=== PATIENT | male | born 1935 | race Two or more races ===

== ENCOUNTER 2021-10-22 10:15 | Outpatient (CLI) | payer MEDICARE, BC | END 2021-10-22 23:59 | disposition home or self-care (01) | LOC: WOU 10:15 | PROVIDERS: ATTEND Specialist | DX: I70.233 Atherosclerosis of native arteries of right leg with ulceration of ankle (principal); L97.312 Non-pressure chronic ulcer of right ankle with fat layer exposed; I87.2 Venous insufficiency (chronic) (peripheral); Z79.01 Long term (current) use of anticoagulants; Z95.0 Presence of cardiac pacemaker; I10 Essential (primary) hypertension; Z87.891 Personal history of nicotine dependence | CPT/HCPCS: 87077; 87070; 87186 ×2; G0463; A6209 ==

== ENCOUNTER 2021-10-29 10:36 | Outpatient (CLI) | payer MEDICARE, BC | END 2021-10-29 23:59 | disposition home or self-care (01) | LOC: WOU 10:36 | PROVIDERS: ATTEND Specialist | DX: I70.233 Atherosclerosis of native arteries of right leg with ulceration of ankle (principal); L97.312 Non-pressure chronic ulcer of right ankle with fat layer exposed; I87.2 Venous insufficiency (chronic) (peripheral); L97.812 Non-pressure chronic ulcer of other part of right lower leg with fat layer exposed; I50.9 Heart failure, unspecified; I48.91 Unspecified atrial fibrillation; Z79.01 Long term (current) use of anticoagulants; Z87.891 Personal history of nicotine dependence; Z95.0 Presence of cardiac pacemaker | CPT/HCPCS: G0463; A6209 ==

== ENCOUNTER 2021-11-05 10:30 | Outpatient (CLI) | payer MEDICARE, BC ==
[2021-11-05] MEDS ORDERED: UREA 10% -AHA 4% CREAM 57 GM TUBE ONE (11:36)
== END 2021-11-05 23:59 | disposition home or self-care (01) ==
LOC: WOU 10:30
PROVIDERS: ATTEND Specialist
DX: I70.233 Atherosclerosis of native arteries of right leg with ulceration of ankle (principal); L97.312 Non-pressure chronic ulcer of right ankle with fat layer exposed; I87.2 Venous insufficiency (chronic) (peripheral); L97.512 Non-pressure chronic ulcer of other part of right foot with fat layer exposed; Z95.0 Presence of cardiac pacemaker; I48.91 Unspecified atrial fibrillation; Z79.01 Long term (current) use of anticoagulants; I50.9 Heart failure, unspecified
CPT/HCPCS: G0463; A6209

== ENCOUNTER 2021-11-12 08:15 | Outpatient (CLI) | payer MEDICARE, BC ==
[2021-11-12] MEDS ORDERED: LIDOCAINE SOLN 4% 50 ML BOTTLE ONE (08:24)
== END 2021-11-12 23:59 | disposition home or self-care (01) ==
LOC: WOU 08:15
PROVIDERS: ATTEND Specialist
DX: I70.233 Atherosclerosis of native arteries of right leg with ulceration of ankle (principal); L97.312 Non-pressure chronic ulcer of right ankle with fat layer exposed; I87.2 Venous insufficiency (chronic) (peripheral); L97.812 Non-pressure chronic ulcer of other part of right lower leg with fat layer exposed; Z95.0 Presence of cardiac pacemaker; I50.9 Heart failure, unspecified; I48.91 Unspecified atrial fibrillation; Z79.01 Long term (current) use of anticoagulants
CPT/HCPCS: G0463

== ENCOUNTER 2021-11-26 13:15 | Outpatient (CLI) | payer MEDICARE, BC ==
[2021-11-26] MEDS ORDERED: LIDOCAINE SOLN 4% 50 ML BOTTLE ONE (13:35)
== END 2021-11-26 23:59 | disposition home or self-care (01) ==
LOC: WOU 13:15
PROVIDERS: ATTEND Podiatrist Foot & Ankle Surgery
DX: L89.513 Pressure ulcer of right ankle, stage 3 (principal); I87.2 Venous insufficiency (chronic) (peripheral); Z95.0 Presence of cardiac pacemaker; I48.91 Unspecified atrial fibrillation; Z79.01 Long term (current) use of anticoagulants; I50.9 Heart failure, unspecified
CPT/HCPCS: 11042; 87070-TC; 87075-TC; 87186-TC

== ENCOUNTER 2021-12-03 09:15 | Outpatient (CLI) | payer MEDICARE, BC | END 2021-12-03 23:59 | disposition home or self-care (01) | LOC: WOU 09:15 | PROVIDERS: ATTEND Specialist | DX: L89.513 Pressure ulcer of right ankle, stage 3 (principal); I87.2 Venous insufficiency (chronic) (peripheral); Z95.0 Presence of cardiac pacemaker; Z79.01 Long term (current) use of anticoagulants | CPT/HCPCS: G0463; A6209 ==

== ENCOUNTER 2021-12-10 09:45 | Outpatient (CLI) | payer MEDICARE, BC ==
[2021-12-10] MEDS ORDERED: LIDOCAINE SOLN 4% 50 ML BOTTLE ONE (10:03)
[2021-12-10] MEDS ORDERED: Z GUARD REMEDY 4 OZ OINT TP ONE (10:48)
== END 2021-12-10 23:59 | disposition home or self-care (01) ==
LOC: WOU 09:45
PROVIDERS: ATTEND Specialist
DX: L89.513 Pressure ulcer of right ankle, stage 3 (principal); L89.521 Pressure ulcer of left ankle, stage 1; I87.2 Venous insufficiency (chronic) (peripheral); I50.9 Heart failure, unspecified; I48.91 Unspecified atrial fibrillation; Z79.01 Long term (current) use of anticoagulants; Z95.0 Presence of cardiac pacemaker; Z87.891 Personal history of nicotine dependence
CPT/HCPCS: 15271; Q4158 ×2; A6209

== ENCOUNTER 2021-12-17 08:43 | Outpatient (CLI) | payer MEDICARE, BC | END 2021-12-17 23:59 | disposition home or self-care (01) | LOC: WOU 08:43 | PROVIDERS: ATTEND Specialist | DX: L89.513 Pressure ulcer of right ankle, stage 3 (principal); L89.106 Pressure-induced deep tissue damage of unspecified part of back; I87.2 Venous insufficiency (chronic) (peripheral); Z79.01 Long term (current) use of anticoagulants | CPT/HCPCS: 15271; Q4158 ×2 ==

== ENCOUNTER 2021-12-24 08:43 | Outpatient (CLI) | payer MEDICARE, BC ==
[2021-12-24] MEDS ORDERED: LIDOCAINE SOLN 4% 50 ML BOTTLE ONE (09:06)
== END 2021-12-24 23:59 | disposition home health service (06) ==
LOC: WOU 08:43
PROVIDERS: ATTEND Specialist
DX: L89.513 Pressure ulcer of right ankle, stage 3 (principal); L89.522 Pressure ulcer of left ankle, stage 2; L89.892 Pressure ulcer of other site, stage 2; L89.106 Pressure-induced deep tissue damage of unspecified part of back; I48.91 Unspecified atrial fibrillation; Z79.01 Long term (current) use of anticoagulants; I50.9 Heart failure, unspecified; Z95.0 Presence of cardiac pacemaker
CPT/HCPCS: 15271; Q4158 ×2

== ENCOUNTER 2021-12-31 08:40 | Outpatient (CLI) | payer MEDICARE, BC | END 2021-12-31 23:59 | disposition home health service (06) | LOC: WOU 08:40 | PROVIDERS: ATTEND Specialist | DX: L89.513 Pressure ulcer of right ankle, stage 3 (principal); I87.2 Venous insufficiency (chronic) (peripheral); Z95.0 Presence of cardiac pacemaker; I48.91 Unspecified atrial fibrillation; Z79.01 Long term (current) use of anticoagulants; I50.9 Heart failure, unspecified | CPT/HCPCS: 15271; Q4158 ×2 ==

== ENCOUNTER 2022-01-06 09:48 | Outpatient (CLI) | payer MEDICARE, BC | END 2022-01-06 23:59 | disposition home health service (06) | LOC: WOU 09:48 | PROVIDERS: ATTEND Podiatrist Foot & Ankle Surgery | DX: B35.1 Tinea unguium (principal); I87.2 Venous insufficiency (chronic) (peripheral); L60.2 Onychogryphosis; L89.513 Pressure ulcer of right ankle, stage 3; Z95.0 Presence of cardiac pacemaker; Z79.01 Long term (current) use of anticoagulants | CPT/HCPCS: G0463 ==

== ENCOUNTER 2022-01-07 08:52 | Outpatient (CLI) | payer MEDICARE, BC | END 2022-01-07 23:59 | disposition home health service (06) | LOC: WOU 08:52 | PROVIDERS: ATTEND Specialist | DX: L89.513 Pressure ulcer of right ankle, stage 3 (principal); I87.2 Venous insufficiency (chronic) (peripheral); Z95.0 Presence of cardiac pacemaker; I48.91 Unspecified atrial fibrillation; Z79.01 Long term (current) use of anticoagulants | CPT/HCPCS: 15271; Q4158 ==

== ENCOUNTER 2022-01-14 08:43 | Outpatient (CLI) | payer MEDICARE, BC | END 2022-01-14 23:59 | disposition home health service (06) | LOC: WOU 08:43 | PROVIDERS: ATTEND Specialist | DX: L89.513 Pressure ulcer of right ankle, stage 3 (principal); I87.2 Venous insufficiency (chronic) (peripheral); Z95.0 Presence of cardiac pacemaker | CPT/HCPCS: 15275; Q4158 ==

== ENCOUNTER 2022-01-21 08:28 | Outpatient (CLI) | payer MEDICARE, BC | END 2022-01-21 23:59 | disposition home health service (06) | LOC: WOU 08:28 | PROVIDERS: ATTEND Specialist | DX: L89.513 Pressure ulcer of right ankle, stage 3 (principal); I87.2 Venous insufficiency (chronic) (peripheral); I48.91 Unspecified atrial fibrillation; Z79.01 Long term (current) use of anticoagulants; Z95.1 Presence of aortocoronary bypass graft; Z95.0 Presence of cardiac pacemaker | CPT/HCPCS: G0463 ==

== ENCOUNTER 2022-01-28 08:46 | Outpatient (CLI) | payer MEDICARE, BC | END 2022-01-28 23:59 | disposition home health service (06) | LOC: WOU 08:46 | PROVIDERS: ATTEND Specialist | DX: L89.513 Pressure ulcer of right ankle, stage 3 (principal); L89.312 Pressure ulcer of right buttock, stage 2; L89.151 Pressure ulcer of sacral region, stage 1; I87.2 Venous insufficiency (chronic) (peripheral); Z95.0 Presence of cardiac pacemaker; Z79.01 Long term (current) use of anticoagulants | CPT/HCPCS: 11042 ==

== ENCOUNTER 2022-02-11 08:47 | Outpatient (CLI) | payer MEDICARE, BC | END 2022-02-11 23:59 | disposition home health service (06) | LOC: WOU 08:47 | PROVIDERS: ATTEND Specialist | DX: L89.513 Pressure ulcer of right ankle, stage 3 (principal); I87.2 Venous insufficiency (chronic) (peripheral); Z95.0 Presence of cardiac pacemaker; Z79.01 Long term (current) use of anticoagulants | CPT/HCPCS: 11042; A6209 ==

== ENCOUNTER 2022-03-18 08:50 | Outpatient (CLI) | payer BC, MEDICARE ==
[2022-03-18] MEDS ORDERED: COLLAGENASE 5 GM TUBE UD TP ONE (09:31)
== END 2022-03-18 23:59 | disposition home health service (06) ==
LOC: WOU 08:50
PROVIDERS: ATTEND Specialist
DX: L89.513 Pressure ulcer of right ankle, stage 3 (principal); L89.612 Pressure ulcer of right heel, stage 2; L89.892 Pressure ulcer of other site, stage 2; I87.2 Venous insufficiency (chronic) (peripheral); Z95.0 Presence of cardiac pacemaker; Z79.01 Long term (current) use of anticoagulants
CPT/HCPCS: 11042

== ENCOUNTER 2022-03-25 08:57 | Outpatient (CLI) | payer MEDICARE | END 2022-03-25 23:59 | disposition home or self-care (01) | LOC: WOU 08:57 | PROVIDERS: ATTEND Specialist | DX: L89.513 Pressure ulcer of right ankle, stage 3 (principal); L89.512 Pressure ulcer of right ankle, stage 2; L89.612 Pressure ulcer of right heel, stage 2; L89.156 Pressure-induced deep tissue damage of sacral region; S81.811A Laceration without foreign body, right lower leg, initial encounter; X58.XXXA Exposure to other specified factors, initial encounter; Y92.89 Other specified places as the place of occurrence of the external cause; R23.8 Other skin changes; L57.0 Actinic keratosis; I87.2 Venous insufficiency (chronic) (peripheral); Z95.0 Presence of cardiac pacemaker; Z79.01 Long term (current) use of anticoagulants | CPT/HCPCS: G0463; A6209 ×2 ==

== ENCOUNTER 2022-04-01 09:09 | Outpatient (CLI) | payer MEDICARE ==
[2022-04-01] MEDS ORDERED: Z GUARD REMEDY 4 OZ OINT TP ONE (09:26)
== END 2022-04-01 23:59 | disposition home or self-care (01) ==
LOC: WOU 09:09
PROVIDERS: ATTEND Specialist
DX: L89.513 Pressure ulcer of right ankle, stage 3 (principal); L89.512 Pressure ulcer of right ankle, stage 2; L89.612 Pressure ulcer of right heel, stage 2; L89.156 Pressure-induced deep tissue damage of sacral region; S81.811A Laceration without foreign body, right lower leg, initial encounter; X58.XXXA Exposure to other specified factors, initial encounter; Y92.89 Other specified places as the place of occurrence of the external cause; R23.8 Other skin changes; L57.0 Actinic keratosis; I87.2 Venous insufficiency (chronic) (peripheral); Z95.0 Presence of cardiac pacemaker; Z79.01 Long term (current) use of anticoagulants
CPT/HCPCS: G0463; A6209

== ENCOUNTER → 2022-04-08 | Outpatient (CLI) | payer MEDICARE ==
[~2022-04-08] MED LIST: SILVER SULFADIAZINE CREAM 25 GM TUBE ONE; Z GUARD REMEDY 4 OZ OINT TP ONE
== END | disposition home or self-care (01) ==
LOC: WOU 08:40
PROVIDERS: ATTEND Specialist
DX: L89.513 Pressure ulcer of right ankle, stage 3 (principal); L89.512 Pressure ulcer of right ankle, stage 2; L89.612 Pressure ulcer of right heel, stage 2; L89.156 Pressure-induced deep tissue damage of sacral region; I87.2 Venous insufficiency (chronic) (peripheral); Z95.0 Presence of cardiac pacemaker; S81.812D Laceration without foreign body, left lower leg, subsequent encounter; S81.811D Laceration without foreign body, right lower leg, subsequent encounter; X58.XXXD Exposure to other specified factors, subsequent encounter; R23.8 Other skin changes; Z79.01 Long term (current) use of anticoagulants
CPT/HCPCS: 11042; A6209

== ENCOUNTER 2022-04-15 08:45 | Outpatient (CLI) | payer MEDICARE | END 2022-04-15 23:59 | disposition home health service (06) | LOC: WOU 08:45 | PROVIDERS: ATTEND Specialist | DX: L89.513 Pressure ulcer of right ankle, stage 3 (principal); L89.512 Pressure ulcer of right ankle, stage 2; L89.612 Pressure ulcer of right heel, stage 2; I87.2 Venous insufficiency (chronic) (peripheral); R23.8 Other skin changes; Z95.0 Presence of cardiac pacemaker; I48.91 Unspecified atrial fibrillation; Z79.01 Long term (current) use of anticoagulants; Z87.891 Personal history of nicotine dependence | CPT/HCPCS: 11042; A6209 ==

== ENCOUNTER 2022-04-22 09:08 | Outpatient (CLI) | payer MEDICARE | END 2022-04-22 23:59 | disposition home health service (06) | LOC: WOU 09:08 | PROVIDERS: ATTEND Specialist | DX: L89.513 Pressure ulcer of right ankle, stage 3 (principal); L89.512 Pressure ulcer of right ankle, stage 2; L89.612 Pressure ulcer of right heel, stage 2; M79.81 Nontraumatic hematoma of soft tissue; I87.2 Venous insufficiency (chronic) (peripheral); Z79.01 Long term (current) use of anticoagulants | CPT/HCPCS: 10140; 11042; A6209 ==

== ENCOUNTER 2022-04-22 10:02 | Emergency (ER) | payer MEDICARE ==
[~2022-04-22] VITALS: Ht 175.3 cm; Wt 63.5 kg
--- NOTE | 2022-04-22 10:10 | NUR ---
bib caregiver from wound clinic for noted low o2 sats and tachycardia. On 6lpm via face mask. IV access initiated and blood drawned and sent to lab. Kept comfortable, will continue to monitor accordingly.
--- NOTE | 2022-04-22 10:20 | NUR ---
INCERTED ANGO CATHETER G 20 ON RT AC BLOOD DROW AND SENT TO LAB BLOOD CUTURE X 2 SENT
--- NOTE | 2022-04-22 10:35 | NUR ---
TEMP 95.2F RECTALE WORM BLANKET APPLED
--- NOTE | 2022-04-22 10:37 | NUR ---
covid swab collected and sent to lab.
[2022-04-22] MEDS ORDERED: AMIODARONE 450 MG in IV D5W 250 ML IV ONE (11:00)
[2022-04-22] MEDS ORDERED: APIXABAN 5 MG TABLET PO SCH (11:00)
[2022-04-22] MEDS ORDERED: hydrALAZINE HCL IV 20 MG VIAL IV PRN (11:00)
[2022-04-22] MEDS ORDERED: ONDANSETRON HCL/PF 4 MG/2 ML VIAL IVP PRN (11:00)
[2022-04-22] MEDS ORDERED: MAG HYDROX/AL HYDROX/SIMETH 30 ML UDC PO PRN (11:00)
[2022-04-22] MEDS ORDERED: MAGNESIUM HYDROXIDE 30 ML UDC PO PRN (11:00)
[2022-04-22] MEDS ORDERED: MORPHINE SULFATE INJ 2 MG/ML DISP.SYRIN IV PRN (11:00)
[2022-04-22] MEDS ORDERED: Z GUARD REMEDY 4 OZ OINT TP PRN (11:00)
[2022-04-22] MEDS ORDERED: AMIODARONE 150 MG in IV D5W 100 ML IV ONE (11:00)
[2022-04-22] MEDS ORDERED: ACETAMINOPHEN 325 MG TABLET PO PRN (11:00)
--- NOTE | 2022-04-22 11:02 | NUR ---
PT HAD WOUND WITH DRESSING on rt heel and lt leg pt came from wound care center
[2022-04-22 11:03] LABS: BASOPHILS % (AUTO) 0.1 % (0.0-2.0); EOSINOPHILS % (AUTO) 0.3 % (0.0-6.0); HEMATOCRIT 45 % (39-51); HEMOGLOBIN 14.1 g/dL (13.5-17.5); LYMPHOCYTES # (AUTO) 0.6 K/uL (0.8-4.8); LYMPHOCYTES % (AUTO) 5.7 % (20.0-44.0); MEAN CORPUSCULAR HGB CONC 31 g/dl (31.0-36.0); MEAN CORPUSCULAR VOLUME 99 fL (80-96); MONOCYTES # (AUTO) 0.9 K/uL (0.1-1.30); MONOCYTES % (AUTO) 8.2 % (2.0-12.0); NEUTROPHILS # (AUTO) 9.6 K/uL (1.8-8.9); NEUTROPHILS % (AUTO) 85.7 % (43.0-81.0); PLATELET COUNT (AUTO) 192 K/uL (150-450); RED BLOOD CELL COUNT(AUTO) 4.57 MIL/uL (4.5-6.0); WHITE BLOOD COUNT (AUTO) 11.2 K/uL (4.3-11.0)
--- NOTE | 2022-04-22 11:10 | NUR ---
DR. FAY SPOOKING WITH FAMILY son in low about pt critical ill and HR 140B/MIN WAS IN critale condition unstable to AMA O2 SAT ON o2 2l NC 86-88% PT REFUSED TO be in hospitale inpt pt
--- NOTE | 2022-04-22 11:15 | NUR ---
SON IN LOW( ED FEIGESTECT )
--- NOTE | 2022-04-22 11:35 | NUR ---
PT had sking tair when home health care worker try to got out of garny
[2022-04-22 11:36] LABS: ALANINE AMINOTRANSFERASE 27 U/L (12-78); ALBUMIN 2.7 g/dL (3.4-5.0); ALKALINE PHOSPHATASE 180 U/L (46-116); ASPARTATE AMINOTRANSFERASE 43 U/L (15-37); BILIRUBIN,DIRECT 0.7 mg/dL (0.0-0.2); BILIRUBIN,TOTAL 1.1 mg/dL (0.2-1.0); CALCIUM, SERUM 8.8 mg/dL (8.5-10.1); CARBON DIOXIDE 30 mmol/L (21-32); CHLORIDE 99 mmol/L (98-107); GLUCOSE 100 mg/dL (74-106); POTASSIUM 5.7 mmol/L (3.5-5.1); SODIUM SERUM 135 mmol/L (136-145); TOTAL PROTEIN, SERUM 7.3 g/dL (6.4-8.2)
--- NOTE | 2022-04-22 11:42 | NUR ---
IV removed. Catheter intact and site benign. Pressure and 4x4 applied to site. No bleeding noted.
--- NOTE | 2022-04-22 11:46 | NUR ---
Patient does not wish to proceed with medical care recommended by Dr. BHAT ). Patient given information related to possible complications, up to and including , which could occur as a result of leaving the hospital at this time. Patient verbalizes understanding of risks involved due to leaving against medical advice. Patient has signed AMA form.
[2022-04-22 11:50] LABS: CREATININE 2.8 mg/dL (0.6-1.3)
[2022-04-22 11:54] LABS: UREA NITROGEN, BLOOD 84 mg/dL (7-18)
[2022-04-22 12:02] VITALS: BP 120/84
[2022-04-22] MEDS ORDERED: AMIODARONE 450 MG in IV D5W 241 ML IV PRN (13:00)
== END 2022-04-22 12:02 | disposition left against medical advice (07) ==
LOC: ER 10:08
DX: I21.4 Non-ST elevation (NSTEMI) myocardial infarction (principal); J96.21 Acute and chronic respiratory failure with hypoxia; I48.20 Chronic atrial fibrillation, unspecified; N17.9 Acute kidney failure, unspecified; E88.09 Other disorders of plasma-protein metabolism, not elsewhere classified; I11.0 Hypertensive heart disease with heart failure; I50.9 Heart failure, unspecified; Z95.1 Presence of aortocoronary bypass graft; I25.10 Atherosclerotic heart disease of native coronary artery without angina pectoris; Z20.822 Contact with and (suspected) exposure to COVID-19; Z88.0 Allergy status to penicillin; Z88.8 Allergy status to other drugs, medicaments and biological substances
CPT/HCPCS: 99291; 87426; 93005; 71045; 85025; 80048; 83605; 80076; 36415; 84484; 83880; J7060; J0282 ×2; A4223; C9803